=== PATIENT | female | born 1980 | race Caucasian/White ===

== ENCOUNTER → 2023-01-19 | Outpatient (CLI) | payer OTHER ==
[2023-01-19 15:45] LABS: Hematocrit 41.2 % (33.0-51.0); Hemoglobin 14.1 g/dL (11.5-16.0); Mean Corpuscular HGB 29.6 pg (26.0-34.0); Mean Corpuscular HGB Conc 34.2 g/dL (31.5-36.5); Mean Corpuscular Volume 86 fL (80-100); Mean Platelet Volume 9.5 fL (9.1-12.4); Platelet Count 323 K/mm3 (150-400); RDW Coefficient Variation 11.9 % (11.7-14.2); RDW Standard Deviation 37.7 fL (35.1-46.3); Red Blood Cell Count 4.77 M/mm3 (3.80-5.20); White Blood Cell Count 6.04 K/mm3 (4.00-11.30)
[2023-01-19 15:47] LABS: Follicle Stimulating Hormone 5.6 mIU/ml; Luteinizing Hormone 2.5 mIU/ml
[2023-01-19 15:51] LABS: Creatinine, Blood 0.5 mg/dL (0.40-1.00); Globulin, Blood 3.9 g/dL (2.2-4.0); Prolactin 4.5 ng/mL; Thyroid Stimulating Hormone 2.89 uIU/mL (0.360-4.800); Total Protein, Blood 7.9 g/dL (6.4-8.2)
== END | disposition home or self-care (01) ==
LOC: LAB SHORT 12:55 → LAB 12:55
PROVIDERS: Student in an Organized Health Care Education/Training Program
DX: Z31.9 Encounter for procreative management, unspecified (principal)
CPT/HCPCS: 80053; 83001; 83002; 84146; 84443; 85027

== ENCOUNTER 2023-06-23 17:48 | Emergency (ER) | payer OTHER ==
[~2023-06-23] VITALS: Ht 172.7 cm; Wt 90.7 kg
[2023-06-23 19:17] VITALS: BP 130/82
== END 2023-06-23 19:40 | disposition home or self-care (01) ==
LOC: ER 17:48
DX: F41.0 Panic disorder [episodic paroxysmal anxiety] (principal); F15.90 Other stimulant use, unspecified, uncomplicated; Z88.0 Allergy status to penicillin; Z88.5 Allergy status to narcotic agent; E11.9 Type 2 diabetes mellitus without complications
CPT/HCPCS: 96360; 99283-25; J7030